=== PATIENT | male | born 2000 | race Two or more races ===

== ENCOUNTER 2024-06-10 14:44 | Inpatient (IN) | payer OTHER ==
[2024-06-10 15:43] VITALS: BMI 18.9
[2024-06-10] MEDS ORDERED: DICYCLOMINE HCL 10 MG CAPSULE PO PRN (16:17)
[2024-06-10] MEDS ORDERED: BENZOCAINE/MENTHOL (CHLORASEPTIC ) LOZENGE MM PRN (16:17)
[2024-06-10] MEDS ORDERED: NICOTINE POLACRILEX 2 MG GUM BUC PRN (16:17)
[2024-06-10] MEDS ORDERED: guaiFENesin 600 MG TABLET.ER (FP) PO PRN (16:17)
[2024-06-10] MEDS ORDERED: ONDANSETRON *ODT* 4 MG TABLET SL PRN (16:17)
[2024-06-10] MEDS ORDERED: NALOXONE (NARCAN) HCL 4 MG/0.1 ML SPRAY NS PRN (16:17)
[2024-06-10] MEDS ORDERED: BISMUTH SUBSALICYLATE 524 MG/30 ML PO PRN (16:17)
[2024-06-10] MEDS ORDERED: hydrOXYzine PAMOATE 25 MG CAPSULE (FP) PO PRN (16:17)
[2024-06-10] MEDS ORDERED: MAG HYDROX/AL HYDROX/SIMETH 30 ML UNIT-DOSE CUP PO PRN (16:17)
[2024-06-10] MEDS ORDERED: NICOTINE POLACRILEX 2 MG LOZENGE BC PRN (16:17)
[2024-06-10] MEDS ORDERED: POLYETHYLENE GLYCOL (HEALTHYLAX) 3350 17 GM PACKET PO PRN (16:17)
[2024-06-10] MEDS ORDERED: MAGNESIUM HYDROX 2400MG/30ML ORAL SUSPENSION 30 ML CUP PO PRN (16:17)
[2024-06-10] MEDS ORDERED: P-EPHED 60MG/TRIPROLIDI 2.5MG TABLET PO PRN (16:17)
[2024-06-10] MEDS ORDERED: BENZONATATE 200 MG CAPSULE PO PRN (16:17)
[2024-06-10] MEDS ORDERED: LOPERAMIDE HCL 2 MG CAPSULE PO PRN (16:17)
[2024-06-10] MEDS ORDERED: IBUPROFEN 400 MG TABLET (FP) PO PRN (16:17)
[2024-06-10] MEDS: MELATONIN 5 MG TABLETS PO SCH (22:16)
[2024-06-10] MEDS: levETIRAcetam 500 MG TABLET (FP) PO SCH (22:16)
[2024-06-10] MEDS: THIAMINE 100 MG TABLET PO SCH (22:16)
[2024-06-11] MEDS: METHOCARBAMOL 500 MG TABLET PO PRN (09:27)
[2024-06-11] MEDS: PRENATAL VITAMINS W/ FOLIC ACID TABLET (FP) PO SCH (09:28)
[2024-06-11] MEDS: IBUPROFEN 600 MG TABLET (FP) PO PRN (09:29)
[2024-06-11 10:45] LABS: HEMATOCRIT 41.7 % (35.4-49); HEMOGLOBIN 13.6 GM/dL (11.7-16.9); MCH 25.9 pg (25.7-33.7); MCHC 32.5 g/dl (32.0-35.9); MEAN CELL VOLUME 79.6 fl (80-96); MEAN PLT VOLUME 8.7 fl (7.5-11.1); PLATELET COUNT 166 10^3/uL (134-434); RBC 5.24 M/mm3 (4.00-5.60); RDW 14.3 % (11.9-15.9); WHITE BLOOD COUNT 4.6 K/mm3 (4.0-10.0)
[2024-06-11 10:47] LABS: POTASSIUM 3.6 mmol/L (3.5-5.1)
[2024-06-11 10:54] LABS: ALBUMIN 3.6 g/dl (3.4-5.0); BLOOD UREA NITROGEN 14.3 mg/dL (7-18); CALCIUM 8.7 mg/dL (8.5-10.1)
[2024-06-11 10:59] LABS: BILIRUBIN,TOTAL 0.6 mg/dL (0.2-1); TOT PROT 6.3 g/dl (6.4-8.2)
[2024-06-11] MEDS: methaDONE HCL 10 MG TABLET PO ONE (12:38)
[2024-06-11] MEDS: diazePAM 5 MG TABLET PO SCH (17:29)
[2024-06-11] MEDS: MELATONIN 5 MG TABLETS PO SCH (22:19)
[2024-06-12] MEDS: diazePAM 5 MG TABLET PO SCH (05:31)
[2024-06-12] MEDS: methaDONE 40 MG, methaDONE 10 MG PO ONE (09:16)
[2024-06-12] MEDS: diazePAM 5 MG TABLET PO PRN (11:35)
[2024-06-12] MEDS: QUEtiapine FUMARATE 100 MG TABLET (FP) PO SCH (22:39)
[2024-06-13] MEDS ORDERED: cloNIDine HCL 0.1 MG TABLET PO PRN
[2024-06-13] MEDS: diazePAM 5 MG TABLET PO SCH (05:35)
[2024-06-13] MEDS: methaDONE 40 MG, methaDONE 20 MG PO ONE (09:39)
[2024-06-14] MEDS: diazePAM 5 MG TABLET PO ONE (05:31)
[2024-06-14] MEDS: methaDONE 40 MG, methaDONE 30 MG PO ONE (09:42)
[2024-06-15] MEDS: methaDONE HCL 40 MG DISPERSABLE TABLET PO ONE (09:33)
[2024-06-15] MEDS: NALOXONE (NYS OPIOID OVERDOSE PROGRAM) 4 MG/0.1 ML SPRAY NS SCH (14:40)
[2024-06-15] MEDS: ACETAMINOPHEN 325 MG TABLET (FP) PO PRN (15:28)
[2024-06-15 20:37] VITALS: TEMP 98
[2024-06-16 05:55] VITALS: BP 97/60; PULSE 76; RESP 17
[2024-06-16] MEDS ORDERED: methaDONE 80 MG, methaDONE 10 MG PO ONE (10:00)
== END 2024-06-16 08:50 | disposition home or self-care (01) | DRG 773 ==
LOC: YASAS 14:44 → Y6N 17:00
PROVIDERS: ADMIT Allergy & Immunology; ATTEND Surgery
PROC: HZ2ZZZZ Detoxification Services for Substance Abuse Treatment (ICD-10-PCS; principal; 2024-06-10)
DX: F13.230 Sedative, hypnotic or anxiolytic dependence with withdrawal, uncomplicated (principal); F11.20 Opioid dependence, uncomplicated; F17.213 Nicotine dependence, cigarettes, with withdrawal; F19.280 Other psychoactive substance dependence with psychoactive substance-induced anxiety disorder; F41.9 Anxiety disorder, unspecified; R63.6 Underweight; Z68.1 Body mass index [BMI] 19.9 or less, adult; Z86.73 Personal history of transient ischemic attack (TIA), and cerebral infarction without residual deficits; Z59.01 Sheltered homelessness
CPT/HCPCS: 36415; 80053; 85027; 86780; 93005; 93010

== ENCOUNTER 2024-08-01 13:18 | Inpatient (IN) | payer OTHER ==
[2024-08-01] MEDS ORDERED: MAGNESIUM HYDROX 2400MG/30ML ORAL SUSPENSION 30 ML CUP PO PRN (16:59)
[2024-08-01] MEDS ORDERED: NICOTINE POLACRILEX 2 MG GUM BUC PRN (16:59)
[2024-08-01] MEDS ORDERED: POLYETHYLENE GLYCOL (HEALTHYLAX) 3350 17 GM PACKET PO PRN (16:59)
[2024-08-01] MEDS ORDERED: BISMUTH SUBSALICYLATE 524 MG/30 ML PO PRN (16:59)
[2024-08-01] MEDS ORDERED: IBUPROFEN 400 MG TABLET (FP) PO PRN (16:59)
[2024-08-01] MEDS ORDERED: ONDANSETRON *ODT* 4 MG TABLET SL PRN (16:59)
[2024-08-01] MEDS ORDERED: MAG HYDROX/AL HYDROX/SIMETH 30 ML UNIT-DOSE CUP PO PRN (16:59)
[2024-08-01] MEDS ORDERED: ACETAMINOPHEN 325 MG TABLET (FP) PO PRN (16:59)
[2024-08-01] MEDS ORDERED: LOPERAMIDE HCL 2 MG CAPSULE PO PRN (16:59)
[2024-08-01] MEDS ORDERED: hydrOXYzine PAMOATE 25 MG CAPSULE (FP) PO PRN (16:59)
[2024-08-01] MEDS ORDERED: BENZOCAINE/MENTHOL (CHLORASEPTIC ) LOZENGE MM PRN (16:59)
[2024-08-01] MEDS ORDERED: guaiFENesin 600 MG TABLET.ER (FP) PO PRN (16:59)
[2024-08-01] MEDS ORDERED: NALOXONE (NARCAN) HCL 4 MG/0.1 ML SPRAY NS PRN (16:59)
[2024-08-01] MEDS ORDERED: DICYCLOMINE HCL 10 MG CAPSULE PO PRN (16:59)
[2024-08-01] MEDS ORDERED: IBUPROFEN 600 MG TABLET (FP) PO PRN (16:59)
[2024-08-01] MEDS ORDERED: BENZONATATE 200 MG CAPSULE PO PRN (16:59)
[2024-08-01] MEDS: MELATONIN 5 MG TABLETS PO SCH (22:06)
[2024-08-01] MEDS: levETIRAcetam 500 MG TABLET (FP) PO SCH (22:06)
[2024-08-01] MEDS: THIAMINE 100 MG TABLET PO SCH (22:06)
[2024-08-02 08:42] LABS: CHLORIDE 102 mmol/L (98-107); SODIUM 138 mmol/L (136-145)
[2024-08-02 08:47] LABS: ALBUMIN 3.5 g/dl (3.4-5.0); ANION GAP 5 mmol/L (4-13); BLOOD UREA NITROGEN 14.5 mg/dL (7-18); CALCIUM 9.1 mg/dL (8.5-10.1); CO2 30 mmol/L (21-32); GLUCOSE,RANDOM 89 mg/dL (74-106)
[2024-08-02 08:50] LABS: SGOT/AST 23 U/L (15-37); SGPT/ALT 21 U/L (13-61)
[2024-08-02 08:52] LABS: BILIRUBIN,TOTAL 0.4 mg/dL (0.2-1); TOT PROT 6.4 g/dl (6.4-8.2)
[2024-08-02 08:53] LABS: ALK PHOS 85 U/L (45-117)
[2024-08-02 09:01] LABS: HEMOGLOBIN 12.2 GM/dL (11.7-16.9); MCH 25.6 pg (25.7-33.7); MCHC 31.4 g/dl (32.0-35.9); MEAN CELL VOLUME 81.6 fl (80-96); MEAN PLT VOLUME 9.5 fl (7.5-11.1); PLATELET COUNT 130 10^3/uL (134-434); RBC 4.78 M/mm3 (4.00-5.60); RDW 14.4 % (11.9-15.9); WHITE BLOOD COUNT 3.8 K/mm3 (4.0-10.0)
[2024-08-02] MEDS: PRENATAL VITAMINS W/ FOLIC ACID TABLET (FP) PO SCH (10:38)
[2024-08-02] MEDS: diazePAM 5 MG TABLET PO SCH (10:40)
[2024-08-02] MEDS: NICOTINE 7 MG/24 HOURS TOPICAL PATCH TD SCH (10:40)
[2024-08-02] MEDS: METHOCARBAMOL 500 MG TABLET PO PRN (17:38)
[2024-08-03 09:03] VITALS: TEMP 97.3
[2024-08-03 13:01] VITALS: BP 98/60; PULSE 66; RESP 16
[2024-08-03] MEDS ORDERED: QUEtiapine FUMARATE 100 MG TABLET (FP) PO SCH (22:00)
== END 2024-08-03 15:06 | disposition home or self-care (01) | DRG 773 ==
LOC: YASAS 13:18 → Y3N 19:17
PROVIDERS: ADMIT Allergy & Immunology; ATTEND Allergy & Immunology
PROC: HZ2ZZZZ Detoxification Services for Substance Abuse Treatment (ICD-10-PCS; principal; 2024-08-01)
DX: F11.20 Opioid dependence, uncomplicated (principal); F13.20 Sedative, hypnotic or anxiolytic dependence, uncomplicated; F10.20 Alcohol dependence, uncomplicated; F17.210 Nicotine dependence, cigarettes, uncomplicated; F19.282 Other psychoactive substance dependence with psychoactive substance-induced sleep disorder; F19.280 Other psychoactive substance dependence with psychoactive substance-induced anxiety disorder; Z56.0 Unemployment, unspecified; Z59.00 Homelessness unspecified
CPT/HCPCS: 36415; 80053; 80305; 80307; 85027; 86780; 93005; 93010